=== PATIENT | male | born 1975 | race Caucasian/White ===

== ENCOUNTER → 2021-01-10 | Day surgery (SDC) | payer BC ==
[~2021-01-10] MED LIST: ALLOPURINOL100 MG PO; BUPROPION XL150 MG PO; CEFTRIAXONE SOD 1 GM VIAL ONE; LOSARTAN POTASS25 MG PO; NALTREXONE HCL50 MG PO
[2021-01-10 08:10] VITALS: BP 140/80
== END | disposition home or self-care (01) ==
LOC: OR 06:03
PROVIDERS: ATTEND Urology
DX: N20.1 Calculus of ureter (principal); N13.30 Unspecified hydronephrosis; G47.33 Obstructive sleep apnea (adult) (pediatric); I10 Essential (primary) hypertension; E66.01 Morbid (severe) obesity due to excess calories; F17.210 Nicotine dependence, cigarettes, uncomplicated; Z68.41 Body mass index [BMI] 40.0-44.9, adult; Z84.1 Family history of disorders of kidney and ureter
CPT/HCPCS: 50590; 93005; J0696